=== PATIENT | male | born 1980 | race African-American/Black ===

== ENCOUNTER 2017-08-23 03:21 | Observation (INO) | payer SELFPAY ==
[2017-08-23] VITALS (7 sets, daily range): BP systolic 110–159; BP diastolic 68–87; PULSE 53–67; RESP 16–18; TEMP 97.4–98; O2SAT 96–99
[~2017-08-23] VITALS: Ht 165.1 cm; Wt 68.0 kg
--- NOTE | 2017-08-23 03:42 | PD ---
HPI Chief Complaint: Chest Pain Time Seen by Provider: 03:32 Travel History International Travel<30 days: No Contact w/Intl Traveler<30days: No Traveled to known affect area: No History of Present Illness HPI 37yo M with no significant PMH presents to the ED with c/o left sided chest pain that started an hour ago. Pain is sharp, nonradiating and intermittent. Said pain lasts a few minutes at a time. Pt was eating when pain started. Severity moderate. No exacerbating or alleviating factor. Pt has never had this pain before. Denies any fever, cough, sob, nausea, vomiting, abdominal pain, focal weakness or numbness. +Cigarette smoker. Denies any family history of sudden cardiac or early AR. Denies any drugs. PFSH Past Medical History Medical History: Denies Significant Hx Tetanus Vaccination: < 5 Years Influenza Vaccination: No Past Surgical History Surgical History: No Previous Surgery Social History Alcohol Use: Yes (OCC) Tobacco Use: Yes Substance Use: No Allergies-Medications (Allergen,Severity, Reaction): Coded Allergies: No Known Allergies (Unverified , 08/23/17) Reported Meds & Prescriptions Reported Meds & Active Scripts Active No Active Prescriptions or Reported Medications Review of Systems Except as stated in HPI: all other systems reviewed are Neg Physical Exam Narrative GENERAL: 60yo M in mild distress. SKIN: Focused skin assessment warm/dry. HEAD: Atraumatic. Normocephalic. EYES: Pupils equal and round. No scleral icterus. No injection or drainage. ENT: No nasal bleeding or discharge. Mucous membranes pink and moist. NECK: Trachea midline. No JVD. CARDIOVASCULAR: Regular rate and rhythm. No murmur appreciated. RESPIRATORY: No accessory muscle use. Clear to auscultation. Breath sounds equal bilaterally. GASTROINTESTINAL: Abdomen soft, non-tender, nondistended. MUSCULOSKELETAL: No obvious deformities. No clubbing. No cyanosis. No edema. NEUROLOGICAL: Awake and alert. No obvious cranial nerve deficits. Motor grossly within normal limits in all extremities. Sensation intact. Normal speech. PSYCHIATRIC: Appropriate mood and affect; insight and judgment normal. Data Data Last Documented VS Vital Signs Date Time Temp Pulse Resp B/P (MAP) Pulse Ox O2 Delivery O2 Flow Rate FiO2 08/23/17 03:27 97.6 56 16 159/87 (111) 99 Orders Orders Basic Metabolic Panel (Bmp) (08/23/17 03:33) Complete Blood Count With Diff (08/23/17 03:33) Magnesium (Mg) (08/23/17 03:33) Prothrombin Time / Inr (Pt) (08/23/17 03:33) Act Partial Throm Time (Ptt) (08/23/17 03:33) Troponin I (08/23/17 03:33) Chest, Single Ap (08/23/17 03:33) Aspirin (Aspirin) (08/23/17 03:45) Nitroglycerin Sl (Nitrostat Sl) (08/23/17 03:45) Electrocardiogram (08/23/17 ) Acetaminophen (Tylenol) (08/23/17 04:00) Activity Bed Rest With Brp (08/23/17 04:44) Vital Signs (Adult) Q4H (08/23/17 04:44) Cardiac Rhythm .As Directed (08/23/17 04:44) Notify Dr: Other .PRN (08/23/17 04:44) Notify DrIke Parameters (08/23/17 04:44) Resp Oxygen Nasal Cannula (08/23/17 ) Ckmb (Isoenzyme) Profile (08/23/17 04:44) Ckmb (Isoenzyme) Profile (08/23/17 07:44) Troponin I (08/23/17 04:44) Troponin I (08/23/17 07:44) Electrocardiogram (08/23/17 04:44) Electrocardiogram (08/23/17 07:44) ^ Obtain (08/23/17 04:44) Sodium Chloride 0.9% Flush (Ns Flush) (08/23/17 04:45) Sodium Chloride 0.9% Flush (Ns Flush) (08/23/17 09:00) Labs Laboratory Tests Test 08/23/17 03:35 White Blood Count 6.5 TH/MM3 Red Blood Count 4.58 MIL/MM3 Hemoglobin 14.9 GM/DL Hematocrit 44.2 % Mean Corpuscular Volume 96.7 FL Mean Corpuscular Hemoglobin 32.5 PG Mean Corpuscular Hemoglobin Concent 33.6 % Red Cell Distribution Width 13.5 % Platelet Count 317 TH/MM3 Mean Platelet Volume 8.6 FL Neutrophils (%) (Auto) 56.2 % Lymphocytes (%) (Auto) 27.2 % Monocytes (%) (Auto) 9.8 % Eosinophils (%) (Auto) 5.6 % Basophils (%) (Auto) 1.2 % Neutrophils # (Auto) 3.7 TH/MM3 Lymphocytes # (Auto) 1.8 TH/MM3 Monocytes # (Auto) 0.6 TH/MM3 Eosinophils # (Auto) 0.4 TH/MM3 Basophils # (Auto) 0.1 TH/MM3 CBC Comment DIFF FINAL Differential Comment Prothrombin Time 10.9 SEC Prothromb Time International Ratio 1.1 RATIO Activated Partial Thromboplast Time 28.0 SEC Blood Urea Nitrogen 10 MG/DL Creatinine 0.86 MG/DL Random Glucose 89 MG/DL Calcium Level 8.8 MG/DL Magnesium Level 2.4 MG/DL Sodium Level 141 MEQ/L Potassium Level 3.5 MEQ/L Chloride Level 103 MEQ/L Carbon Dioxide Level 30.6 MEQ/L Anion Gap 7 MEQ/L Estimat Glomerular Filtration Rate 99 ML/MIN Troponin I LESS THAN 0.02 NG/ML MDM Medical Decision Making Medical Screen Exam Complete: Yes Emergency Medical Condition: Yes Interpretation(s) EKG: NSR 62bpm. LAD. Borderline LVH. 1mm ST elevation in V2, V3, likely early repolarization given concave morphology. No prior to compare. Differential Diagnosis ACS vs. GERD vs. musculoskeletal pain vs. costochondritis Narrative Course 37yo M with atypical chest pain that is intermittent. Pt does have LVH on EKG and BP was initially elevated. Pt has no primary care physician and does not go to the doctors. Labs reviewed, no leukocytosis. H/H normal. Troponin negative. CXR negative. Pt reevaluated after aspirin, sublingual nitro and acetaminophen and said chest pain improved. Said it comes and goes though. Although pt has low risk, given his lack of follow up and the fact that he has never had this pain before, will do serial EKG and cardiac enzymes. Diagnosis Primary Impression: Chest pain Qualified Codes: R07.9 - Chest pain, unspecified Admitting Information Admitting Physician Requests: Observation Scripts No Active Prescriptions or Reported Meds Huong Barrientos DO August 23, 2017 03:42
[2017-08-23 03:45] LABS: AUTOMATED NEUTROPHIL # 3.7 TH/MM3 (1.8-7.7); BASOPHIL # 0.1 TH/MM3 (0-0.2); BASOPHIL % 1.2 % (0.0-2.0); EOSINOPHIL # 0.4 TH/MM3 (0-0.4); EOSINOPHIL % 5.6 % (0.0-4.0); HEMATOCRIT 44.2 % (39.0-51.0); HEMOGLOBIN 14.9 GM/DL (13.0-17.0); LYMPH % 27.2 % (9.0-44.0); LYMPHOCYTE # 1.8 TH/MM3 (1.0-4.8); MEAN CELL VOLUME 96.7 FL (80.0-100.0); MEAN CORPUSCULAR HEMOGLOBIN 32.5 PG (27.0-34.0); MEAN CORPUSCULAR HGB CONC 33.6 % (32.0-36.0); MEAN PLATELET VOLUME 8.6 FL (7.0-11.0); MONO % 9.8 % (0.0-8.0); MONOCYTE # 0.6 TH/MM3 (0-0.9); NEUT % 56.2 % (16.0-70.0); PLATELET COUNT 317 TH/MM3 (150-450); RED BLOOD COUNT 4.58 MIL/MM3 (4.50-5.90); RED CELL DISTRIBUTION WIDTH 13.5 % (11.6-17.2); WHITE BLOOD COUNT 6.5 TH/MM3 (4.0-11.0)
[2017-08-23] MEDS ORDERED: ASPIRIN 325 MG TAB PO ONE (03:45)
[2017-08-23] MEDS: NITROGLYCERIN 0.4 MG SL 25 TABS/BTL SL PRN ×2 (03:46→04:04)
[2017-08-23 03:55] LABS: INTERNATIONAL NORMALIZED RATIO 1.1 RATIO; PROTHROMBIN TIME - PATIENT 10.9 SEC (9.8-11.6)
[2017-08-23] MEDS: ACETAMINOPHEN 325 MG TAB PO ONE ×2 (04:00→05:26)
[2017-08-23 04:09] LABS: BICARBONATE 30.6 MEQ/L (21.0-32.0); BLOOD UREA NITROGEN 10 MG/DL (7-18); CALCIUM 8.8 MG/DL (8.5-10.1); CHLORIDE 103 MEQ/L (98-107); CREATININE 0.86 MG/DL (0.60-1.30); GLOMERULAR FILTRATION RATE 99 ML/MIN (>89); GLUCOSE,RANDOM 89 MG/DL (74-106); MAGNESIUM 2.4 MG/DL (1.5-2.5); SODIUM (NA) 141 MEQ/L (136-145)
[2017-08-23 04:13] LABS: TROPONIN I LESS THAN 0.02 NG/ML (0.02-0.05)
--- NOTE | 2017-08-23 04:31 | RADRPT ---
EXAM DATE/TIME: 08/23/2017 04:09 [facility] COMPARISON: No previous studies available for comparison. INDICATIONS : Chest pain. MEDICAL HISTORY : None. SURGICAL HISTORY : None. ENCOUNTER: Initial ACUITY: 1 day PAIN SCORE: 5/10 LOCATION: Bilateral chest FINDINGS: A single view of the chest demonstrates the lungs to be symmetrically aerated without evidence of mas s, infiltrate or effusion. The cardiomediastinal contours are unremarkable. Osseous structures are intact. CONCLUSION: Normal examination. Bonifacio Fitzgerald Jr., MD on August 23, 2017 at 4:28 Board Certified Radiologist. This report was verified electronically.
[2017-08-23] MEDS ORDERED: SODIUM CHLORIDE 0.9% FLUSH 10 ML FLUSH IV FLUSH PRN (04:45)
[2017-08-23 07:27] LABS: TROPONIN I LESS THAN 0.02 NG/ML (0.02-0.05)
[2017-08-23] MEDS ORDERED: SODIUM CHLOR 0.9% 1000 ML INJ 1,000 ML IV ONE (07:41)
--- NOTE | 2017-08-23 08:38 | EKG ---
Date Performed: 08/23/2017 Time Performed: 03:29:24 PTAGE: 37 years EKG: Sinus rhythm WITH SINUS ARRHYTHMIA MODERATE INTRAVENTRICULAR CONDUCTION DELAY MINIMAL VOLTAGE CRITERIA FOR LVH, C ONSIDER NORMAL VARIANT ST ELEVATION, PROBABLY EARLY REPOLARIZATION NONSPECIFIC T-WAVE ABNORMALITY BOR DERLINE ECG NO PREVIOUS TRACING DOCTOR: Terry Martin Interpretating Date/Time 08/23/2017 08:38:08
--- NOTE | 2017-08-23 08:40 | EKG ---
Date Performed: 08/23/2017 Time Performed: 06:24:35 PTAGE: 37 years EKG: SINUS BRADYCARDIA WITH SINUS ARRHYTHMIA POSSIBLE RIGHT VENTRICULAR CONDUCTION DELAY MODERAT E VOLTAGE CRITERIA FOR LVH, CONSIDER NORMAL VARIANT POSSIBLE SEPTAL MYOCARDIAL INFARCTION ABNORMAL EC G NO PREVIOUS TRACING DOCTOR: Terry Martin Interpretating Date/Time 08/23/2017 08:39:39
--- NOTE | 2017-08-23 08:43 | HHI.HP ---
HPI Primary Care Physician No Primary Care Physician Chief Complaint CHEST PAIN History of Present Illness This is a 36 year old male that presents to the ED with complaint of CP that began at midnight while eating waffle cookies. Described as an ache and rated as a 7/10. Denies SOB, nausea, and diaphoresis. The discomfort was intermittent lasting a few minutes at a time. Found nothing in particular bring on the discomfort. Denies recent illness. Denies fevers or chills. Found nothing to worsen or improve the symptoms. Change in position had no effect on the discomfort. He has not been coughing. Denies fevers or chills. Denies history of CAD. Review of Systems General: Patient denies fevers, chills. HEENT: Patient denies headache, sore throat, difficulty swallowing. Cardiovascular: Has the chest discomfort as mentioned above. Denies sensation of heart beating rapidly or irregularly. No syncope. Denies diaphoresis. Respiratory: Denies shortness of breath or inspirational chest discomfort. Denies coughing wheezing or hemoptysis. GI: Patient denies nausea, vomiting, diarrhea, abdominal pain, bloody stools. Musculoskeletal: Patient denies joint pain or edema. Denies calf pain or edema. Neurovascular: Patient denies numbness, tingling, weakness in extremities. Denies headache. Endocrine: Denies polyuria and polydipsia. Hematologic: Denies easy bruising. Skin: Denies rash or itching. Past Family Social History Allergies: Coded Allergies: No Known Allergies (Unverified , 08/23/17) Past Medical History Denies hypertension, hyperlipidemia, diabetes, and CAD. Past Surgical History Denies prior surgeries. Reported Medications Reported Meds & Active Scripts Active No Active Prescriptions or Reported Medications Active Ordered Medications Current Medications Medications (Trade) Dose Ordered Sig/Tani Route Start Time Stop Time Status Last Admin (Nitrostat Sl) 0.4 mg Q5M PRN SL 08/23/17 03:45 08/23/17 03:46 (NS Flush) 2 ml UNSCH PRN IV FLUSH 08/23/17 04:45 (NS Flush) 2 ml BID IV FLUSH 08/23/17 09:00 Sodium Chloride 1,000 ml @ 1,000 mls/hr Q1H ONCE IV 08/23/17 07:41 08/23/17 08:40 08/23/17 07:49 Family History Denies family history of CAD. Social History Smokes about a 30 pack of cigarettes per day. Has on average 18 beers on the weekends. Denies illicit drug use. Physical Exam Vital Signs Vital Signs Date Time Temp Pulse Resp B/P (MAP) Pulse Ox O2 Delivery O2 Flow Rate FiO2 08/23/17 08:06 97.4 59 18 120/74 (89) 97 08/23/17 06:33 21 08/23/17 05:39 98.0 54 16 110/68 (82) 98 08/23/17 05:26 08/23/17 05:00 57 16 115/70 (85) 99 Room Air 08/23/17 03:27 97.6 56 16 159/87 (111) 99 Physical Exam GENERAL: This is a well-nourished, well-developed patient, in no apparent distress. Patient speaks in clear complete sentences. Patient is pleasant. HEENT: Head is atraumatic and normocephalic. Neck is supple without lymphadenopathy and trachea is midline. No JVD or carotid bruits. CARDIOVASCULAR: Regular rate and rhythm without murmurs, gallops, or rubs. RESPIRATORY: Clear to auscultation. Breath sounds equal bilaterally. No wheezes , rales, or rhonchi. Chest wall is nontender. No use of accessory muscles. GASTROINTESTINAL: Abdomen is nontender, nondistended. Abdomen soft. No obvious pulsatile mass or bruit. No CVA tenderness. Strong femoral pulses bilaterally. Normal bowel sounds in all quadrants. MUSCULOSKELETAL: Patient is moving upper and lower extremities freely. No calf tenderness or edema, no Homans sign. Strong pulses in upper and lower extremities. NEUROLOGICAL: Patient is alert and oriented. Cranial nerves 2-12 are grossly intact. No focal deficits and speech is clear. SKIN: No rash and turgor is normal. Laboratory Laboratory Tests Test 08/23/17 03:35 08/23/17 06:33 White Blood Count 6.5 Red Blood Count 4.58 Hemoglobin 14.9 Hematocrit 44.2 Mean Corpuscular Volume 96.7 Mean Corpuscular Hemoglobin 32.5 Mean Corpuscular Hemoglobin Concent 33.6 Red Cell Distribution Width 13.5 Platelet Count 317 Mean Platelet Volume 8.6 Neutrophils (%) (Auto) 56.2 Lymphocytes (%) (Auto) 27.2 Monocytes (%) (Auto) 9.8 Eosinophils (%) (Auto) 5.6 Basophils (%) (Auto) 1.2 Neutrophils # (Auto) 3.7 Lymphocytes # (Auto) 1.8 Monocytes # (Auto) 0.6 Eosinophils # (Auto) 0.4 Basophils # (Auto) 0.1 CBC Comment DIFF FINAL Differential Comment Prothrombin Time 10.9 Prothromb Time International Ratio 1.1 Activated Partial Thromboplast Time 28.0 Blood Urea Nitrogen 10 Creatinine 0.86 Random Glucose 89 Calcium Level 8.8 Magnesium Level 2.4 Sodium Level 141 Potassium Level 3.5 Chloride Level 103 Carbon Dioxide Level 30.6 Anion Gap 7 Estimat Glomerular Filtration Rate 99 Troponin I LESS THAN 0.02 LESS THAN 0.02 Total Creatine Kinase 2085 Creatine Kinase MB 8.5 Creatine Kinase MB % 0.4 Result Diagram: 08/23/1733408/23/17334 Imaging Last 48 hours Impressions Chest X-Ray 08/23/17332 Signed Impressions: Service Date/Time: Wednesday, August 23, 2017 04:09 - CONCLUSION: Normal examination. Bonifacio Fitzgerald Jr., MD Course EKGs are sinus rhythm without significant ST segment depression or elevation. Caprini VTE Risk Assessment Caprini VTE Risk Assessment: No/Low Risk (score <= 1) Caprini Risk Assessment Model Point Value = 1 Point Value = 2 Point Value = 3 Point Value = 5 Age 41-60 Minor surgery BMI > 25 kg/m2 Swollen legs Varicose veins or History of unexplained or recurrent spontaneous Oral contraceptives or hormone replacement Sepsis (< 1 month) Serious lung disease, including pneumonia (< 1 month) Abnormal pulmonary function Acute myocardial infarction Congestive heart failure (< 1 month) History of inflammatory bowel disease Medical patient at bed rest Age 61-74 Arthroscopic surgery Major open surgery (> 45 min) Laparoscopic surgery (> 45 min) Malignancy Confined to bed (> 72 hours) Immobilizing plaster cast Central venous access Age >= 75 History of VTE Family history of VTE Factor V Leiden Prothrombin [id number] Lupus anticoagulant Anticardiolipin antibodies Elevated serum homocysteine Heparin-induced thrombocytopenia Other congenital or acquired thrombophilia Stroke (< 1 month) Elective arthroplasty Hip, pelvis, or leg fracture Acute spinal cord injury (< 1 month) Prophylaxis Regimen Total Risk Factor Score Risk Level Prophylaxis Regimen 0-1 Low Early ambulation 2 Moderate Order ONE of the following: *Sequential Compression Device (SCD) *Heparin 5000 units SQ BID 3-4 Higher Order ONE of the following medications: *Heparin 5000 units SQ TID *Enoxaparin/Lovenox 40 mg SQ daily (WT < 150 kg, CrCl > 30 mL/min) *Enoxaparin/Lovenox 30 mg SQ daily (WT < 150 kg, CrCl > 10-29 mL/min) *Enoxaparin/Lovenox 30 mg SQ BID (WT < 150 kg, CrCl > 30 mL/min) AND/OR *Sequential Compression Device (SCD) 5 or more Highest Order ONE of the following medications: *Heparin 5000 units SQ TID (Preferred with Epidurals) *Enoxaparin/Lovenox 40 mg SQ daily (WT < 150 kg, CrCl > 30 mL/min) *Enoxaparin/Lovenox 30 mg SQ daily (WT < 150 kg, CrCl > 10-29 mL/min) *Enoxaparin/Lovenox 30 mg SQ BID (WT < 150 kg, CrCl > 30 mL/min) AND *Sequential Compression Device (SCD) Assessment and Plan Assessment and Plan * Chest pain: Patient will continue to have serial cardiac enzymes and EKGs for ruling out purposes. CPK is elevated. We will give IV hydration and continue to recheck. Patient was seen by Dr. Terry Martin of cardiology in the chest pain center. He will have a Lexiscan. Patient will be discharged home if his stress test is nonischemic with instructions to follow-up with PCP. Return to ED for interval issues. * Tobacco abuse: Patient counseled on importance of smoking cessation. Patient is stable at this time. He is agreeable to this plan. [place] August 23, 2017 08:43
[2017-08-23] MEDS ORDERED: SODIUM CHLORIDE 0.9% FLUSH 10 ML FLUSH IV FLUSH SCH (09:00)
[2017-08-23] MEDS ORDERED: REGADENOSON INJ 0.4 MG/5 ML SYR ONE (10:01)
--- NOTE | 2017-08-23 11:32 | RADRPT ---
EXAM DATE/TIME: 08/23/2017 09:49 [facility] COMPARISON: No previous studies available for comparison. INDICATIONS : Left sided chest pain. Angina. DOSE: 26.2 mCi Tc99m Myoview at stress. 8.6 mCi Tc99m Myoview at rest. 0.4 mg Lexiscan STRESS SYMPTOMS: None. EJECTION FRACTION: 61% MEDICAL HISTORY : Smoker. SURGICAL HISTORY : None. ENCOUNTER: Initial ACUITY: 1 day PAIN SCALE: 3/10 LOCATION: Left chest TECHNIQUE: The patient underwent pharmacologic stress with infusion of prescribed dose. Continuous ECG tracing was monitored during stress. Gated SPECT imaging was performed after stress and conventional SPECT i maging was performed at rest. The examination was performed on a SPECT/CT scanner, both attenuation and non-corrected datasets were reviewed. Patient achieved only 60% of maximum predicted heart rate FINDINGS: DISTRIBUTION: The maximum perfused segment at stress is in the anterior lateral PERFUSION STUDY: The pattern of perfusion at stress is within normal limits. GATED STUDY: There is intact wall motion and thickening without hypokinetic or dyskinetic segments. CONCLUSION: Negative for stress-induced ischemia. Ejection fraction 61%. RISK CATEGORY: Low (<1% Annual Mortality Rate) Pillo Khanna MD FACR on August 23, 2017 at 11:27 Board Certified Radiologist. This report was verified electronically.
[2017-08-23 12:24] LABS: TROPONIN I LESS THAN 0.02 NG/ML (0.02-0.05)
[2017-08-23] MEDS ORDERED: SODIUM CHLORID 0.9% 500 ML INJ 500 ML IV ONE (12:45)
--- NOTE | 2017-08-23 13:18 | HHI.DCPOC ---
Discharge Care Plan Diagnosis: (1) Chest pain (2) Tobacco abuse (3) Elevated CPK Goals to Promote Your Health * To prevent worsening of your condition and complications * To maintain your health at the optimal level Directions to Meet Your Goals Take your medications as prescribed Follow your dietary instruction Follow activity as directed Keep your appointments as scheduled Take your immunizations and boosters as scheduled If your symptoms worsen call your PCP, if no PCP go to Urgent Care Center or Emergency Room Smoking is Dangerous to Your Health. Avoid second hand smoke Call the 24-hour hour crisis hotline for domestic abuse at [place] August 23, 2017 13:18
--- NOTE | 2017-08-23 16:37 | TR ---
Date Performed: 08/23/2017 Time Performed: 10:12:15 DOCTOR: Terry Martin DRUG LIST: CLINICAL HISTORY: REASON FOR TEST: REASON FOR ENDING: OBSERVATION: CONCLUSION: COMMENTS: Lexiscan stress test was performed under standard four minute protocol. Radionuclide was injected one minute prior to ending the test. No electrocardiographic abormalities were present t o suggest ischemia. Nuclear imaging and interpretation are pending.
== END 2017-08-23 13:58 | disposition home or self-care (01) ==
LOC: NEPC 03:21 → NEDA 04:45 → NEPFCDU 05:29
PROVIDERS: ADMIT Internal Medicine Interventional Cardiology; ATTEND Internal Medicine Interventional Cardiology
DX: R07.89 Other chest pain (principal); R74.8 Abnormal levels of other serum enzymes; R00.1 Bradycardia, unspecified; R94.31 Abnormal electrocardiogram [ECG] [EKG]; F17.210 Nicotine dependence, cigarettes, uncomplicated
CPT/HCPCS: 71045; 78452; 80048; 80307; 82550; 82552; 83735; 84484; 85025; 85610; 85730; 93005; 93017; 96360; 99285; A9502; G0378; J2785; J7030; J7040

== ENCOUNTER 2017-09-07 03:27 | Emergency (ER) | payer SELFPAY ==
[~2017-09-07] VITALS: Ht 175.3 cm; Wt 68.0 kg
[2017-09-07 03:28] VITALS: BP 115/67; PULSE 128; RESP 16; TEMP 99.1; O2SAT 96
--- NOTE | 2017-09-07 04:08 | PD ---
HPI Chief Complaint: Pain: Acute or Chronic Time Seen by Provider: 04:06 Travel History International Travel<30 days: No Contact w/Intl Traveler<30days: No Traveled to known affect area: No History of Present Illness HPI 37-year-old male presents to the emergency department complaint of 1 month of upper back pain. Patient does not report any upper extremity lower extremity numbness tingling or weakness. Patient does not report neck pain. Patient denies any injury. Patient said no chest pain or shortness of breath. Patient denies any abdominal pain. No bladder or bowel dysfunction. No saddle anesthesia. Patient does have some intermittent lower extremity pain. PFSH Past Medical History Medical History: Denies Significant Hx Cardiovascular Problems: No Tetanus Vaccination: Unknown Influenza Vaccination: No Past Surgical History Surgical History: No Previous Surgery Social History Alcohol Use: Yes (OCC) Tobacco Use: Yes Substance Use: No Allergies-Medications (Allergen,Severity, Reaction): Coded Allergies: No Known Allergies (Unverified , 08/23/17) Reported Meds & Prescriptions Reported Meds & Active Scripts Active No Active Prescriptions or Reported Medications Review of Systems Except as stated in HPI: all other systems reviewed are Neg General / Constitutional: No: Fever, Chills HENT: No: Congestion, Neck Stiffness, Neck Pain Cardiovascular: No: Chest Pain or Discomfort Respiratory: No: Cough, Shortness of Breath Gastrointestinal: No: Nausea, Vomiting, Abdominal Pain, Changes in Bowel Habits Genitourinary: No: Urgency, Frequency, Dysuria, Decreased Urinary Output, Hesitancy, Dribbling, Incontinence Musculoskeletal: Positive: Myalgias, Arthralgias Neurologic: No: Weakness, Dizziness, Syncope, Focal Abnormalities, Coordination Problem, Paresthesia, Incontinence, Sensory Disturbance Psychiatric: No: Anxiety Endocrine: No: Cold Intolerance Hematologic/Lymphatic: No: Easy Bruising Physical Exam Narrative GENERAL: Well-developed well-nourished male no acute distress no respiratory distress SKIN: Warm and dry. HEAD: Normocephalic. EYES: No scleral icterus. No injection or drainage. NECK: Supple, trachea midline. No JVD or lymphadenopathy. CARDIOVASCULAR: Regular rate and rhythm without murmurs, gallops, or rubs. RESPIRATORY: Breath sounds equal bilaterally. No accessory muscle use. GASTROINTESTINAL: Abdomen soft, non-tender, nondistended. MUSCULOSKELETAL: No cyanosis, or edema. BACK: Nontender except mild tenderness along the upper thoracic spine to palpation without bony step-off and without obvious deformity. No flank tenderness. Negative straight leg raising. DTRs 2+ and equal without clonus. Sensory exam intact. Motor strength 5/5 bilateral upper extremities and lower extremities .no CVA tenderness. Data Data Last Documented VS Vital Signs Date Time Temp Pulse Resp B/P (MAP) Pulse Ox O2 Delivery O2 Flow Rate FiO2 09/07/17 03:28 99.1 128 16 115/67 (83) 96 Orders Orders Orphenadrine Inj (Norflex Inj) (09/07/17 04:15) Ketorolac Inj (Toradol Inj) (09/07/17 04:15) Spine, Thoracic-Ap/Lat/Sw(3vw) (09/07/17 ) Ed Discharge Order (09/07/17 05:19) [facility] Medical Decision Making Medical Screen Exam Complete: Yes Emergency Medical Condition: Yes Medical Record Reviewed: Yes Interpretation(s) Last Impressions Thoracic Spine X-Ray 09/07/17 0000 Signed Impressions: CONCLUSION: Unremarkable study. Vital Signs Date Time Temp Pulse Resp B/P (MAP) Pulse Ox O2 Delivery O2 Flow Rate FiO2 09/07/17 03:28 99.1 128 16 115/67 (83) 96 Differential Diagnosis Thoracic spine strain sprain fracture cord injury radiculopathy Narrative Course Patient with 1 month of intermittent upper back pain with no neurologic findings and mild tenderness to palpation along the upper back and spine with no bony step-off patient given injection of Toradol 60 mg IM and Norflex 60 mg IM Imaging study reveals no acute normality Patient reports pain is improved and is stable for outpatient management and provided prescription for Robaxin and ibuprofen Diagnosis Primary Impression: Strain of thoracic spine Referrals: Primary Care Physician call for appointment Patient Instructions: General Instructions Additional Instructions: Increase fluid hydration Apply moist heat to upper back area for comfort purposes as needed Take medications as prescribed Follow-up with primary care provider Return the emergency department for any concerns or change in condition Med/Other Pt SpecificInfo: Prescription(s) given Scripts Ibuprofen (Ibuprofen) 600 Mg Tab 600 MG PO Q6H Y for Pain/Inflammation, #12 TAB 0 Refills Prov: Jess Montalvo MD 09/07/17 Methocarbamol (Robaxin) 750 Mg Tab 750 MG PO Q6HR for Muscle Spasm, #12 TAB 0 Refills Prov: Jess Montalvo MD 09/07/17 Disposition: 01 DISCHARGE HOME Condition: Stable Jess Montalvo MD September 07, 2017 04:08
[2017-09-07] MEDS ORDERED: ORPHENADRINE INJ 60 MG/2 ML AMP IM ONE (04:15)
[2017-09-07] MEDS ORDERED: KETOROLAC TROMETHAMINE 60 MG/2 ML (IM) VIAL IM ONE (04:15)
--- NOTE | 2017-09-07 05:03 | RADRPT ---
EXAM DATE: 09/07/2017 4:37 AM EDT AGE/SEX: 37 years / Male INDICATIONS: Upper back pain after lifting heavy boxes. CLINICAL DATA: This is the patient's initial encounter. Patient reports that signs and symptoms have been present for 1 month and indicates a pain score of 7/10. MEDICAL/SURGICAL HISTORY: None. None. COMPARISON: No prior exams available for comparison. FINDINGS: No appreciable compression deformities are seen. The disc spaces are well maintained. CONCLUSION: Unremarkable study. Electronically signed by: Aristides Pelayo MD 09/07/2017 5:02 AM EDT
[2017-09-07] MEDS ORDERED: ROBA750T PO (05:21)
[2017-09-07] MEDS ORDERED: IBUP-232 PO (05:21)
== END 2017-09-07 05:34 | disposition home or self-care (01) ==
LOC: NEPC 03:27
DX: S29.012A Strain of muscle and tendon of back wall of thorax, initial encounter (principal); X58.XXXA Exposure to other specified factors, initial encounter
CPT/HCPCS: 72072; 96372; 99283; J1885; J2360

== ENCOUNTER 2017-09-26 03:13 | Emergency (ER) | payer SELFPAY ==
[~2017-09-26] VITALS: Ht 170.2 cm; Wt 70.0 kg
[~2017-09-26 03:13] MED LIST: IBUP-232 PO; ROBA750T PO
[2017-09-26 03:19] VITALS: BP 147/86; PULSE 68; RESP 16; TEMP 98.4; O2SAT 99
--- NOTE | 2017-09-26 03:27 | PD ---
HPI Chief Complaint: Pain: Acute or Chronic Time Seen by Provider: 03:25 Travel History International Travel<30 days: No Contact w/Intl Traveler<30days: No Traveled to known affect area: No History of Present Illness HPI This is a 37-year-old homeless individual who presents for evaluation of left hand crampy sensation. Symptoms started just prior to arrival while he was sleeping on the bench. He reports that it felt like his hand was cramping and that he could not straighten his hand. He reports that symptoms have improved spontaneously but not totally resolved. Symptoms are mild with no aggravating or relieving factors. Denies any numbness or tingling or weakness. Denies any neck pain, back pain, chest pain, shortness of breath, headache, blurred vision. Denies any problems in his right hand or wrist. He has no other complaints at this time. [facility] Past Medical History Cardiovascular Problems: No Social History Alcohol Use: Yes ([facility]) Tobacco Use: Yes Substance Use: No Allergies-Medications (Allergen,Severity, Reaction): Coded Allergies: No Known Allergies (Unverified , 09/26/17) Reported Meds & Prescriptions Reported Meds & Active Scripts Active No Active Prescriptions or Reported Medications Review of Systems Except as stated in HPI: all other systems reviewed are Neg Physical Exam Narrative GENERAL: Well-developed well-nourished male no acute distress SKIN: Warm and dry. HEAD: Atraumatic. Normocephalic. EYES: Pupils equal and round. No scleral icterus. No injection or drainage. ENT: No nasal bleeding or discharge. Mucous membranes pink and moist. NECK: Trachea midline. No JVD. CARDIOVASCULAR: Regular rate and rhythm. No murmur appreciated. RESPIRATORY: No accessory muscle use. Clear to auscultation. Breath sounds equal bilaterally. MUSCULOSKELETAL: No obvious deformities. No clubbing. No cyanosis. No edema. 2+ radial pulse bilaterally. Capillary refill less than 2 seconds in all digits of the left and right hand. Normal sensation distally in the median radial and ulnar nerve distributions. NEUROLOGICAL: Awake and alert. No obvious cranial nerve deficits. Motor grossly within normal limits. Normal speech. Negative Trousseau. Negative chovstek signs Data Data Last Documented VS Vital Signs Date Time Temp Pulse Resp B/P (MAP) Pulse Ox O2 Delivery O2 Flow Rate FiO2 09/26/17 03:19 98.4 68 16 147/86 (106) 99 Orders Orders Basic Metabolic Panel (Bmp) (09/26/17 03:25) Magnesium (Mg) (09/26/17 03:25) Ed Discharge Order (09/26/17 04:21) Labs Laboratory Tests Test 09/26/17 03:30 Blood Urea Nitrogen 8 MG/DL Creatinine 0.78 MG/DL Random Glucose 88 MG/DL Calcium Level 8.2 MG/DL Magnesium Level 2.3 MG/DL Sodium Level 141 MEQ/L Potassium Level 3.6 MEQ/L Chloride Level 105 MEQ/L Carbon Dioxide Level 27.0 MEQ/L Anion Gap 9 MEQ/L Estimat Glomerular Filtration Rate 134 ML/MIN MDM Medical Decision Making Medical Screen Exam Complete: Yes Emergency Medical Condition: Yes Medical Record Reviewed: Yes Differential Diagnosis Cramps peripheral neuropathy, peripheral mononeuropathy, radial nerve palsy, hypocalcemia Narrative Course Physical examination is unremarkable. He appears to have normal use of his left hand. Distal sensation is preserved in all peripheral nerve wayne. Distal strength is preserved. We will check his electrolytes. If normal he will be discharged. Diagnosis Primary Impression: Left hand pain Additional Instructions: Stay well hydrated well-nourished, follow-up with primary care physician. Med/Other Pt SpecificInfo: No Change to Meds Scripts No Active Prescriptions or Reported Meds Disposition: 01 DISCHARGE HOME Condition: Stable Jett Alberto Sep 26, 2017 03:27
[2017-09-26 03:58] LABS: CALCIUM 8.2 MG/DL (8.5-10.1); CREATININE 0.78 MG/DL (0.60-1.30); MAGNESIUM 2.3 MG/DL (1.5-2.5)
== END 2017-09-26 04:32 | disposition home or self-care (01) ==
LOC: NEPD 03:13
DX: M79.642 Pain in left hand (principal); Z72.0 Tobacco use; Z59.0 Homelessness
CPT/HCPCS: 80048; 83735; 99283